=== PATIENT | male | born 2000 | race Caucasian/White ===

== ENCOUNTER 2021-09-29 12:43 | Emergency (ER) | payer OTHER ==
[~2021-09-29] VITALS: Ht 167.6 cm; Wt 91.0 kg
[2021-09-29] MEDS ORDERED: ONDANSETRON 4MG ODT PO ONE (14:00)
[2021-09-29] MEDS ORDERED: ACETAMINOPHEN 325MG TABLET PO ONE (15:00)
[2021-09-29] MEDS ORDERED: IBUPROFEN 400MG TABLET PO ONE (15:00)
[2021-09-29] MEDS ORDERED: ONDA4TAB5 MT (15:59)
[2021-09-29 16:15] VITALS: BP 102/78
== END 2021-09-29 16:29 | disposition home or self-care (01) ==
LOC: ER 12:43
DX: A08.4 Viral intestinal infection, unspecified (principal)
CPT/HCPCS: 99284; Q0162